=== PATIENT | female | born 1990 | race Caucasian/White ===

== ENCOUNTER → 2017-03-21 | Outpatient (CLI) | payer OTHER ==
[~2017-03-21] MED LIST: IOHEXOL 240 MG/ML 50ML VIAL. ONE; IOHEXOL 240 MG/ML 50ML VIAL. PO ONE; IOHEXOL 300 MG/ML 75 ML VIAL. IV ONE
[2017-03-21 14:07] LABS: BASO % 0 % (0-3); EOS % 1 % (0-3); HEMATOCRIT 40.7 % (36.0-47.0); HEMOGLOBIN 13.6 g/dL (12.0-15.5); LYMPH # 1.9 x10^3/uL (1.0-4.8); LYMPH % 34 % (24-48); MEAN CORPUSCULAR HEMOGLOBIN 29 pg (25-35); MEAN CORPUSCULAR HGB CONC 34 g/dL (31-37); MEAN CORPUSCULAR VOLUME 87 fL (79-100); MONO # 0.7 x10^3/uL (0.0-1.1); MONO % 13 % (0-9); NEUT # 2.9 x10^3uL (1.8-7.7); NEUT % 52 % (31-73); PLATELET COUNT 241 x10^3/uL (140-400); RED BLOOD COUNT 4.69 x10^6/uL (3.50-5.40); RED CELL DISTRIBUTION WIDTH 13.1 % (11.5-14.5); WHITE BLOOD COUNT 5.7 x10^3/uL (4.0-11.0)
[2017-03-21 14:12] LABS: ALBUMIN 3.5 g/dL (3.4-5.0); ALBUMIN/GLOBULIN RATIO 0.9 (1.0-1.7); CALCIUM 8.9 mg/dL (8.5-10.1); MAGNESIUM 2.3 mg/dL (1.8-2.4); POTASSIUM 3.9 mmol/L (3.5-5.1); TOTAL BILIRUBIN 0.3 mg/dL (0.2-1.0); TOTAL PROTEIN 7.6 g/dL (6.4-8.2)
--- NOTE | 2017-03-21 15:15 | RAD ---
Examination: CT of the abdomen pelvis without IV contrast HISTORY: History of bloating, abdominal pain COMPARISON: None available Technique: Axial CT images of the abdomen pelvis performed with oral and IV contrast. Exposure: One or more of the following individualized dose reduction techniques were utilized for this examination: 1. Automated exposure control 2. Adjustment of the mA and/or kV according to patient size 3. Use of iterative reconstruction technique FINDINGS: Minimal bibasilar lung atelectasis. No evidence of free air identified in the abdomen. The visualized liver demonstrates mild decreased attenuation. The visualized spleen, adrenals grossly appears unremarkable. The gallbladder is mildly distended. The stomach is mildly distended. The visualized pancreas grossly appears unremarkable. The small bowel is nondilated. The appendix is normal. Feces and gas noted throughout the colon. Urinary bladder is mildly distended. The visualized uterus grossly appears unremarkable. Cystic structures identified in the right and left ovaries. The bilateral kidneys enhance symmetrically. The caliber of the aorta grossly appears unremarkable. No evidence of lytic bony destructive lesion. IMPRESSION: 1. No acute intra-abdominal findings. 2. Probable hepatic steatosis. 3. Cystic structures identified in the bilateral ovaries probably follicles. Electronically signed by: Dionte Ryder MD (03/21/2017 3:12 PM) [id number]
== END | disposition home or self-care (01) ==
LOC: CT 13:14
PROVIDERS: ATTEND Family Medicine
DX: N83.201 Unspecified ovarian cyst, right side (principal); N83.202 Unspecified ovarian cyst, left side; N32.89 Other specified disorders of bladder; K31.89 Other diseases of stomach and duodenum; K82.8 Other specified diseases of gallbladder
CPT/HCPCS: 36415; 74177; 80053; 82150; 83690; 83735; 85025; Q9966; Q9967

== ENCOUNTER → 2020-10-06 | Outpatient (CLI) | payer OTHER ==
--- NOTE | 2020-10-06 09:32 | RAD ---
EXAM: Abdomen sonogram. HISTORY: Pain. TECHNIQUE: Sonographic imaging of the abdomen was performed. COMPARISON: CT dated 03/21/2017. FINDINGS: The liver is normal in size. No focal hepatic lesion is seen. The common bile duct is ole l in caliber. The gallbladder is unremarkable. The spleen is normal in size. The right kidney measure s 8.2 cm [id number] and the left kidney measures 9.7 cm [id number]. There is a 7 mm echogenic foc us within the lower pole the left kidney, likely artifactual or a nonobstructing stone. The pancreas partially, aorta and inferior vena cava are partially obscured due to bowel gas. IMPRESSION: 1. Slight decreased right renal size. This may be due to measurement technique or mild atrophy. 2. Echogenic focus within the lower pole of the left kidney. This may be artifactual or due to a nono bstructing stone. 3. Partially obscured midline structures due to bowel gas. 4. No acute sonographic finding. Electronically signed by: Kaylie Wong MD (10/06/2020 9:30 AM) [id number]
== END ==
LOC: US 08:39
PROVIDERS: ATTEND Physician Assistant
DX: R10.11 Right upper quadrant pain (principal)
CPT/HCPCS: 76700

== ENCOUNTER → 2020-10-22 | Outpatient (CLI) | payer OTHER ==
[~2020-10-22] VITALS: Ht 154.9 cm; Wt 81.6 kg
[~2020-10-22] MED LIST changes: -IOHEXOL 240 MG/ML 50ML VIAL. ONE; -IOHEXOL 240 MG/ML 50ML VIAL. PO ONE; -IOHEXOL 300 MG/ML 75 ML VIAL. IV ONE; +SINCALIDE 1.63 MCG in IV NORMAL SALINE 50ML 30 ML IV ONE
--- NOTE | 2020-10-22 12:54 | RAD ---
INDICATION: Reason: RIGHT UPPER QUADRANT PAIN / Spl. Instructions: / History: COMPARISON: October 06, 2020 TECHNIQUE: 5mCi of Tc99m Choletec was injected intravenously followed by scintigraphic images of the abdomen. 1.6 mcg of CCK was then injected and a gallbladder ejection fraction was calculated. FINDINGS: Appropriate radiotracer clearance from the blood pool. Appropriate radiotracer excretion into the biliary tree. Prompt passage of contrast into the small bowel. Visualization of the gallbladder prior to the 60 minute time point. Gallbladder ejection fraction is 42 percent. IMPRESSION: * No scintigraphic evidence of acute cholecystitis or high grade biliary obstruction. * Gallbladder ejection fraction is 42 percent. Electronically signed by: Yury Fung MD (10/22/2020 12:52 PM) [id number]
== END ==
LOC: NM 09:55
PROVIDERS: ATTEND Family Medicine
DX: R10.11 Right upper quadrant pain (principal)
CPT/HCPCS: 78227; A9537; J2805